=== PATIENT | female | born 1980 | race Caucasian/White ===

== ENCOUNTER → 2016-05-25 | Outpatient (CLI) | payer OTHER ==
[~2016-05-25] MED LIST: LORA10TA PO; PSEU30TA PO
[2016-05-28 13:37] LABS: HSV IGM 1 TITER ND TITER; HSV IGM II TITER ND TITER
[2016-05-28 23:57] LABS: HSV2 IGM IFA NEGATIVE (())
== END ==
LOC: CLAB 13:25
PROVIDERS: ATTEND Obstetrics & Gynecology
DX: N76.2 Acute vulvitis (principal); Z11.3 Encounter for screening for infections with a predominantly sexual mode of transmission
CPT/HCPCS: 36415; 86695; 86696

== ENCOUNTER → 2016-08-24 | Outpatient (CLI) | payer OTHER ==
[2016-08-24 07:50] LABS: AUTOMATED NEUTROPHIL # 4.4 TH/MM3 (1.8-7.7); BASOPHIL % 0.4 % (0.0-2.0); EOSINOPHIL # 0.2 TH/MM3 (0-0.4); EOSINOPHIL % 3.1 % (0.0-4.0); HEMATOCRIT 42.1 % (35.0-46.0); HEMO FLAGS DIFF FINAL; LYMPH % 25.3 % (9.0-44.0); LYMPHOCYTE # 1.8 TH/MM3 (1.0-4.8); MEAN CELL VOLUME 91.1 FL (80.0-100.0); MEAN CORPUSCULAR HEMOGLOBIN 30.4 PG (27.0-34.0); MEAN CORPUSCULAR HGB CONC 33.3 % (32.0-36.0); MONO % 7.6 % (0.0-8.0); NEUT % 63.6 % (16.0-70.0); PLATELET COUNT 360 TH/MM3 (150-450); RED BLOOD COUNT 4.62 MIL/MM3 (4.00-5.30); RED CELL DISTRIBUTION WIDTH 13.3 % (11.6-17.2)
[2016-08-24 08:46] LABS: FERRITIN 13 NG/ML (8-252); FREE T3 3.34 PG/ML (2.18-3.98); TRANSFERRIN IRON PROFILE 329 MG/DL (200-360)
[2016-08-25 23:52] LABS: THYROGLOB ABS LESS THAN 1 IU/mL (< OR = 1)
== END ==
LOC: CLAB 07:14
DX: E04.9 Nontoxic goiter, unspecified (principal); L65.9 Nonscarring hair loss, unspecified
CPT/HCPCS: 36415; 82306; 82607; 82627; 82728; 83540; 83550; 84402; 84403; 84439; 84443; 84481; 85025; 86376; 86800

== ENCOUNTER → 2016-10-05 | Outpatient (CLI) | payer OTHER ==
[2016-10-05 08:31] LABS: BICARBONATE 24.9 MEQ/L (21.0-32.0)
== END ==
LOC: CLAB 07:37
DX: L68.0 Hirsutism (principal)
CPT/HCPCS: 36415; 80048

== ENCOUNTER → 2016-12-22 | Outpatient (CLI) | payer OTHER ==
[2016-12-22 08:44] LABS: BICARBONATE 25.2 MEQ/L (21.0-32.0); POTASSIUM 4.1 MEQ/L (3.5-5.1)
[2016-12-25 16:38] LABS: BIOAVAILABLE TESTOSTERONE 8.4 ng/dL (())
== END ==
LOC: CLAB 07:29
DX: E28.2 Polycystic ovarian syndrome (principal); E55.9 Vitamin D deficiency, unspecified
CPT/HCPCS: 36415; 80048; 82306; 82627; 84270; 84402; 84403; 84410

== ENCOUNTER → 2017-02-23 | Outpatient (CLI) | payer OTHER ==
[2017-02-23 14:17] LABS: BICARBONATE 22.5 MEQ/L (21.0-32.0); POTASSIUM 3.8 MEQ/L (3.5-5.1)
== END ==
LOC: CLAB 13:29
DX: L68.0 Hirsutism (principal)
CPT/HCPCS: 36415; 80048